=== PATIENT | female | born 1990 | race American Indian/Alaskan Native ===

== ENCOUNTER 2016-12-08 22:11 | Emergency (ER) | payer SELFPAY ==
[2016-12-09 00:21] LABS: Basophils % (Auto) 0.5 % (0.0-1.8); Eosinophils % (Auto) 1.6 % (0.0-4.3); Hematocrit 41.7 % (30.3-42.9); Hemoglobin 13.8 gm/dl (10.1-14.3); Mean Corpuscular HGB Conc 33 % (30-34); Mean Corpuscular Hemoglobin 31 pg (28-32); Mean Corpuscular Volume 93 fl (79-97); Platelet Count 212 K/mm3 (140-440); Red Blood Count 4.47 M/mm3 (3.65-5.03); Red Cell Distribution Width 12.6 % (13.2-15.2); White Blood Count 6.2 K/mm3 (4.5-11.0)
[2016-12-09 00:30] LABS: INR 1.1 (0.87-1.13)
[2016-12-09 00:31] LABS: Partial Thromboplastin Time 26.7 Sec. (24.2-36.6)
[2016-12-09 00:41] LABS: Anion Gap 14 mmol/L; BUN/Creatinine Ratio 16.25; Blood Urea Nitrogen 13 mg/dL (7-17); Calcium 9.4 mg/dL (8.4-10.2); Carbon Dioxide 28 mmol/L (22-30); Chloride 100.6 mmol/L (98-107); Glucose 77 mg/dL (65-100); Potassium 4.1 mmol/L (3.6-5.0); Sodium 138 mmol/L (137-145)
[2016-12-09 00:47] LABS: Creatine Kinase MB 1.5 ng/mL (0.0-4.0)
--- NOTE | 2016-12-09 07:26 | XRay Report ---
CHEST 2 VIEWS INDICATION: Chest pain. COMPARISON: None similar at this institution. FINDINGS: PA and lateral chest radiographs demonstrate normal cardiomediastinal silhouette. Clear lungs. Intact bones. Presumed gastric air and debris rather than subtle pneumoperitoneum. Please correlate. Abdomen shielded. CONCLUSION: No acute disease in the chest, as described. Please correlate. Thank you for the opportunity to participate in this patient's care.
[2016-12-09 08:04] VITALS: BP 136/82
--- NOTE | 2016-12-09 08:08 | Emergency Department Report ---
HPI - General Chief Complaint: Chest Pain Time Seen by Provider: 12/09/16 07:49 - HPI HPI: 26-year-old female presents today with chest pain that is worse with deep breath 2 weeks. Patient also complaining of left-sided numbness that comes and goes. Describes her chest pain as 10 over 10 sharp, constant pain which feels like her rib cage is stabbing her heart. Denies any recent change in activity. Denies history of similar symptoms. Denies any past medical history. Denies trying any medication for symptomatic relief. Patient denies shortness of breath, abdominal pain, nausea, vomiting, dizziness, confusion, visual changes. ED Past Medical Hx - Past Medical History Previous Medical History?: No - Surgical History Past Surgical History?: No - Social History Smoking Status: Never Smoker Substance Use Type: None - Medications Home Medications: Home Medications Medication Instructions Recorded Confirmed Last Taken Type Naproxen [Naprosyn] 500 mg PO BID #30 tablet 12/09/16 Unknown Rx ED Review of Systems ROS: Stated complaint: CHEST PAIN Other details as noted in HPI Constitutional: denies: chills, fever, malaise Eyes: denies: eye pain ENT: denies: ear pain, throat pain, congestion Respiratory: denies: cough, shortness of breath, wheezing Cardiovascular: chest pain. denies: palpitations Endocrine: no symptoms reported Gastrointestinal: denies: abdominal pain, nausea, vomiting Skin: denies: rash Neurological: numbness. denies: headache, weakness Physical Exam - Physical Exam Vital Signs: Vital Signs 12/08/16 22:15 Temperature 97.8 F Pulse Rate 63 Respiratory 18 Rate Blood Pressure 136/85 O2 Sat by Pulse 100 Oximetry Physical Exam: GENERAL: The patient is well-developed and well-nourished. Patient is in NAD. HEAD: Normocephalic. Atraumatic. EYES: Extraocular motions are intact. Positive for a cataract of her left eye. NOSE: Normal nasal mucosa with no nasal discharge. THROAT: No erythema, swelling or exudates. NECK: Supple, nontender, without lymphadenopathy. CHEST/LUNGS: Clear to auscultation throughout. CHEST WALL: No chest wall tenderness to palpation. HEART/CARDIOVASCULAR: Regular rate and rhythm. ABDOMEN: Abdomen is soft, nontender. Bowel sounds normoactive. No guarding or rebound tenderness. EXTREMITIES: Peripheral pulses intact. Capillary refill less than 2 seconds. NEURO: Alert and oriented x 3. Normal gait. CN II-XII intact. Symmetrical strength and sensation. Negative Romberg and pronator drift. Cerebellar testing normal. GCS score of 15. ED Course Vital Signs 12/08/16 22:15 Temperature 97.8 F Pulse Rate 63 Respiratory 18 Rate Blood Pressure 136/85 O2 Sat by Pulse 100 Oximetry ED Medical Decision Making - Lab Data Result diagrams: 12/09/16 00:04 12/09/16 00:04 Vital Signs 12/08/16 12/09/16 22:15 08:04 Temperature 97.8 F Pulse Rate 63 62 Respiratory 18 20 Rate Blood Pressure 136/85 Blood Pressure 136/82 [Left] O2 Sat by Pulse 100 100 Oximetry Lab Results 12/09/16 12/09/16 12/09/16 Range/Units 00:04 00:04 00:04 WBC 6.2 (4.5-11.0) K/mm3 RBC 4.47 (3.65-5.03) M/mm3 Hgb 13.8 (10.1-14.3) gm/dl Hct 41.7 (30.3-42.9) % MCV 93 (79-97) fl MCH 31 (28-32) pg MCHC 33 (30-34) % RDW 12.6 L (13.2-15.2) % Plt Count 212 (140-440) K/mm3 Lymph % (Auto) 49.0 H (13.4-35.0) % [place] % (Auto) 7.4 H (0.0-7.3) % Eos % (Auto) 1.6 (0.0-4.3) % Baso % (Auto) 0.5 (0.0-1.8) % Lymph # 3.0 (1.2-5.4) K/mm3 [place] # 0.5 (0.0-0.8) K/mm3 Eos # 0.1 (0.0-0.4) K/mm3 Baso # 0.0 (0.0-0.1) K/mm3 Seg Neutrophils % 41.5 (40.0-70.0) % Seg Neutrophils # 2.6 (1.8-7.7) K/mm3 PT 14.1 (12.2-14.9) Sec. INR 1.10 (0.87-1.13) APTT 26.7 (24.2-36.6) Sec. Sodium 138 (137-145) mmol/L Potassium 4.1 (3.6-5.0) mmol/L Chloride 100.6 (98-107) mmol/L Carbon Dioxide 28 (22-30) mmol/L Anion Gap 14 mmol/L BUN 13 (7-17) mg/dL Creatinine 0.8 (0.7-1.2) mg/dL Estimated GFR > 60 ml/min BUN/Creatinine Ratio 16.25 % Glucose 77 (65-100) mg/dL Calcium 9.4 (8.4-10.2) mg/dL Total Creatine Kinase (30-135) units/L CK-MB (CK-2) (0.0-4.0) ng/mL CK-MB (CK-2) Rel Index (0-4) Troponin T < 0.010 (0.00-0.029) ng/mL HCG, Qual (Negative) 12/09/16 12/09/16 Range/Units 00:04 00:04 WBC (4.5-11.0) K/mm3 RBC (3.65-5.03) M/mm3 Hgb (10.1-14.3) gm/dl Hct (30.3-42.9) % MCV (79-97) fl MCH (28-32) pg MCHC (30-34) % RDW (13.2-15.2) % Plt Count (140-440) K/mm3 Lymph % (Auto) (13.4-35.0) % [place] % (Auto) (0.0-7.3) % Eos % (Auto) (0.0-4.3) % Baso % (Auto) (0.0-1.8) % Lymph # (1.2-5.4) K/mm3 [place] # (0.0-0.8) K/mm3 Eos # (0.0-0.4) K/mm3 Baso # (0.0-0.1) K/mm3 Seg Neutrophils % (40.0-70.0) % Seg Neutrophils # (1.8-7.7) K/mm3 PT (12.2-14.9) Sec. INR (0.87-1.13) APTT (24.2-36.6) Sec. Sodium (137-145) mmol/L Potassium (3.6-5.0) mmol/L Chloride (98-107) mmol/L Carbon Dioxide (22-30) mmol/L Anion Gap mmol/L BUN (7-17) mg/dL Creatinine (0.7-1.2) mg/dL Estimated GFR ml/min BUN/Creatinine Ratio % Glucose (65-100) mg/dL Calcium (8.4-10.2) mg/dL Total Creatine Kinase 138 H (30-135) units/L CK-MB (CK-2) 1.5 (0.0-4.0) ng/mL CK-MB (CK-2) Rel Index 1.0 (0-4) Troponin T (0.00-0.029) ng/mL HCG, Qual Negative (Negative) - Radiology Data Radiology results: report reviewed Chest x-ray: Normal cardiomediastinal silhouette. Clear lungs. Intact bones. Presumed gastric air into place rather than subtle pneumoperitoneum or new. - Medical Decision Making 26 -year-old female presents today with chest pain 2-3 weeks and intermittent left-sided numbness. Her lab results, EKG and chest x-ray is within normal limits. Her neuro exam is unremarkable. Patient's scored 0 on well's criteria and has a HEART score of 0. Patient is in no acute distress at this time. She will be discharged home and is encouraged to follow up with a primary care provider. She has been provided with a referral for ophthalmology for her cataract. She will be sent home on Naprosyn and is encouraged to return to the emergency room for any worsening symptoms. Critical care attestation.: If time is entered above; I have spent that time in minutes in the direct care of this critically ill patient, excluding procedure time. ED Disposition Clinical Impression: Chest pain Qualifiers: Chest pain type: other chest pain Qualified Code(s): R07.89 - Other chest pain ; R07.8 - Other chest pain Disposition: DISCHARGED TO HOME OR SELFCARE Is pt being admited?: No Does the pt Need Aspirin: No Condition: Stable Instructions: Chest Pain (ED) Additional Instructions: Follow with primary care provider. Return to the emergency department if symptoms worsen. Prescriptions: Naproxen [Naprosyn] 500 mg PO BID #30 tablet Referrals: PRIMARY CARE, [Primary Care Provider] - 3-5 Days [place] SERRATO MD [Staff Physician] - 3-5 Days [facility] [Outside] - 3-5 Days Forms: Work/School Release Form(ED) Time of Disposition: 08:16
== END 2016-12-09 08:24 | disposition home or self-care (01) ==
LOC: ED 22:11
DX: R07.89 Other chest pain (principal)
CPT/HCPCS: 36415; 71020; 80048; 82550; 82553; 84484; 84703; 85025; 85610; 85730; 93005; 93010